=== PATIENT | female | born 1985 | race Caucasian/White ===

== ENCOUNTER 2016-07-23 14:16 | Emergency (ER) | payer OTHER ==
--- NOTE | ~2016-07-23 | CR63 ---
[facility] A Service of [facility] & [facility] RADIOLOGY TEXT RESULTS PATIENT: KHOA VERONICA LOCATION: CFTX : 81 UNIT #: [id number] AGE: [address]: Ming Sánchez SEX: F ORDER DR: [id number] [facility] [address] [place], [place] [address] [id number] E MR#: [id number] Acc #: [id number] NAME: KHOA VERONICA : 1985 SEX: F STUDY DATE/TIME: 07/23/2016 14:40 UNIT: [facility] ROOM: STUDY DESCRIPTION: CR Chest 2 View Attending Physician: Mnig Sánchez Ordering Physician: Er Physicians Primary Care Physician: No Primary Care Physician MEDICAL IMAGING REPORT This report is preliminary unless electronic signature is present EXAM 2 view chest 07/23/2016 INDICATIONS Cough, congestion and chills for 2 days. PA and lateral views of the chest without comparison. FINDINGS The heart and mediastinal contours are normal. The lungs are clear. No pleural effusion. IMPRESSION No acute findings. Dictated by... Tom Tran M.D. THIS IS AN ELECTRONICALLY VERIFIED REPORT Tom Tran M.D. at 07/24/2016 8:18 AM Kodi TD: 07/23/2016 18:41 JOB #: [id number] MEDICAL IMAGING REPORT COPY
[2016-07-23 14:04] LABS: INFLUENZA A NEG (NEG); INFLUENZA B NEG (NEG)
== END 2016-07-23 15:55 | disposition home or self-care (01) ==
LOC: CFTX 14:16
PROVIDERS: Nurse Practitioner
DX: J06.9 Acute upper respiratory infection, unspecified (principal); F17.210 Nicotine dependence, cigarettes, uncomplicated; Z98.51 Tubal ligation status; Z98.890 Other specified postprocedural states
CPT/HCPCS: 71020; 84703; 87651; 87804; 94640; 99284